=== PATIENT | male | born 1955 | race Caucasian/White ===

== ENCOUNTER 2017-07-27 21:40 | Emergency (ER) | payer BC ==
[2017-07-27] MEDS ORDERED: BABY ASPIRIN 81 MG CHEW PO ONE (21:53)
[2017-07-27] MEDS ORDERED: NITRO-BID 2% UD PACKETS TOP ONE (21:57)
--- NOTE | 2017-07-27 22:01 | ERPHSYRPT ---
- History of Present Illness Time Seen by Provider: 07/27/17 21:49 Historian: patient Exam Limitations: no limitations Physician History: Pt has been c/o productive cough, cold symptoms for one week, coughing up yellow phlegm, developed midsternal chest pain tonight at 20:00 PM, not radiating, with SOB< but no diaphoresis, vomiting or severe distress. He is a smoker, with Hx of HTN, COPD, and cardiac stents, arteficial heart valve. Timing/Duration: hour(s) (2), constant Activities at Onset: rest Quality: sharpness Location: substernal Chest Pain Radiation: no radiation Severity of Pain-Max: severe Severity of Pain-Current: severe Modifying Factors: Improves With: nothing Associated Symptoms: shortness of breath, cough, hurts to breathe Prior Chest Pain/Cardiac Workup: heart attack Nitro Today/Relief: no nitro taken today Aspirin Treatment Today: no aspirin today Allergies/Adverse Reactions: No Known Drug Allergies Allergy (Unverified 07/27/17 23:16) Home Medications: Carvedilol 3.125 mg [Coreg 3.125 MG] 3.125 mg PO BID 07/27/17 [History] Ticagrelor [Brilinta] 90 mg PO DAILY 07/27/17 [History] - Review of Systems Constitutional: No Symptoms Respiratory: Cough, Dyspnea Cardiac: Chest Pain, No Edema All Other Systems: Reviewed and Negative - Nursing Vital Signs Nursing Vital Signs: Initial Vital Signs Temperature 98.2 F 07/27/17 21:41 Pulse Rate 81 07/27/17 21:41 Respiratory Rate 18 07/27/17 21:41 Blood Pressure 112/67 07/27/17 21:41 O2 Sat by Pulse Oximetry 95 07/27/17 21:41 Pain Scale Pain Intensity 3 - Physical Exam General Appearance: no apparent distress Eye Exam: eyes nml inspection Ears, Nose, Throat Exam: normal ENT inspection Neck Exam: normal inspection, non-tender, supple, No JVD Respiratory Exam: normal breath sounds, lungs clear, airway intact, No chest tenderness, No respiratory distress Cardiovascular Exam: regular rate/rhythm, normal heart sounds, normal peripheral pulses, No murmur Gastrointestinal/Abdomen Exam: soft, normal bowel sounds, No tenderness Back Exam: normal inspection, No CVA tenderness Extremity Exam: normal inspection, No calf tenderness Neurologic Exam: alert, oriented x 3 Skin Exam: normal color, warm, dry, No rash Lymphatic Exam: No adenopathy SpO2 Interpretation: normal Oxygen Delivery: Room Air - Course Nursing assessment & vital signs reviewed: Yes EKG Interpreted by Me: RATE, NORMAL AXIS, NORMAL INTERVALS, Non-specific ST Changes - Radiology Exams Chest X-ray Interpretation: Interpreted by me, Negative Ordered Tests: Active Orders 24 hr Category Date Time Status Bedrest with BRP/BSC ROUTINE Activity 07/27/17 23:52 Active Admission/Status Order ROUTINE Care 07/27/17 23:52 Ordered Foundry Worker General STAT Care 07/27/17 21:54 Active Code Status Order ROUTINE Care 07/27/17 23:52 Ordered EKG-ER Only STAT Care 07/27/17 21:53 Active IV Care Q6H Care 07/27/17 23:52 Ordered IV Insertion STAT Care 07/27/17 21:53 Active Implement Chest Pain Pathway ROUTINE Care 07/27/17 23:52 Ordered Oxygen-ED Only NASAL CANNULA 2 lpm Care 07/27/17 21:53 Active Steve Sunshine Apply ROUTINE Care 07/27/17 23:52 Ordered Telemetry ROUTINE Care 07/27/17 23:52 Ordered Weight,Daily 0600 Care 07/27/17 23:52 Ordered Cardiac Diet Diet 07/27/17 Breakfast Ordered CHEST 1 VIEW (PORTABLE) Stat Exams 07/27/17 21:54 Taken CBC W DIFF Stat Lab 07/27/17 22:05 Completed CK-Creatinine Phosphokinase Stat Lab 07/27/17 22:05 Completed CMP Stat Lab 07/27/17 22:05 Completed D-DIMER QUANTITATION Stat Lab 07/27/17 22:05 Completed ETHYL ALCOHOL Stat Lab 07/27/17 22:05 Completed LIPASE Stat Lab 07/27/17 22:05 Completed LIPID PROFILE AM.LAB Lab 07/28/17 04:00 Ordered MAGNESIUM Stat Lab 07/27/17 22:05 Completed NT PRO BNP Stat Lab 07/27/17 22:05 Completed PROTIME WITH INR Stat Lab 07/27/17 22:05 Completed TROPONIN Q3H Lab 07/27/17 22:05 Completed TROPONIN Q3H Lab 07/28/17 01:00 Ordered TROPONIN Q3H Lab 07/28/17 04:00 Ordered TROPONIN Q3H Lab 07/28/17 07:00 Ordered TROPONIN Q3H Lab 07/28/17 10:00 Ordered EKG Q8HX2,QAMX3,PRN RT 07/27/17 23:52 Ordered Pulse Oximetry Q4H RT 07/27/17 23:52 Ordered Respiratory Nebulizer STAT RT 07/27/17 22:12 Active Transfer Order Routine Transfer 07/27/17 Ordered Medication Summary Discontinued Medications Generic Name Dose Route Start Last Admin Trade Name Freq PRN Reason Stop Dose Admin Albuterol/Ipratropium 3 ml 07/27/17 22:11 07/27/17 22:36 Duoneb 0.5-3 Mg/3 Ml Neb IH 07/27/17 22:12 3 ml STAT ONE Administration Albuterol/Ipratropium Confirm 07/27/17 22:35 Duoneb 0.5-3 Mg/3 Ml Neb Administered 07/27/17 22:36 Dose 3 ml IH .STK-MED ONE Aspirin 324 mg 07/27/17 21:53 07/27/17 22:01 Baby Aspirin 81 Mg Chew PO 07/27/17 21:54 324 mg STAT ONE Administration Nitroglycerin 1 gm 07/27/17 21:57 07/27/17 22:11 Nitro-Bid 2% Ud Packets TOP 07/27/17 21:58 1 gm STAT ONE Administration Nitroglycerin Confirm 07/27/17 22:11 Nitro-Bid 2% Ud Packets Administered 07/27/17 22:12 Dose 1 gm .ROUTE .STK-MED ONE Lab/Rad Data: Laboratory Result Diagrams 07/27/17 22:05 07/27/17 22:05 Laboratory Results 07/27/17 07/27/17 07/27/17 Range/Units 22:05 22:05 22:05 WBC (4.0-10.5) K/mm3 RBC (4.1-5.6) M/mm3 Hgb (12.5-18.0) gm/dl Hct (42-50) % MCV (78-100) fl MCH (26-32) pg MCHC (32-36) g/dl RDW (11.5-14.0) % Plt Count (150-450) K/mm3 MPV (6-9.5) fl Gran % (36.0-66.0) % Lymphocytes % (24.0-44.0) % Monocytes % (0.0-12.0) % Eosinophils % (0.00-5.0) % Basophils % (0.0-0.4) % Basophils # (0-0.4) INR 1.07 (0.8-3.0) D-Dimer 298.54 (0-500) ng/mL Sodium 138 (136-145) mEq/L Potassium 3.9 (3.5-5.1) mEq/L Chloride 103 (98-107) mEq/L Carbon Dioxide 26.6 (21-32) mEq/L Anion Gap 12.7 (5-15) MEQ/L BUN 12 (9-20) mg/dL Creatinine 1.28 (0.55-1.30) mg/dl Estimated GFR > 60 ML/MIN Glucose 84 (70-110) MG/DL Calcium 9.1 (8.5-10.1) mg/dL Magnesium 2.0 (1.8-2.4) mg/dL Total Bilirubin 0.50 (0.2-1.0) mg/dL AST 25 (15-37) U/L ALT 22 (12-78) U/L Alkaline Phosphatase 108 (46-116) U/L Creatine Kinase 94 (39-308) U/L Troponin I < 0.017 (0.000-0.056) ng/ml NT-Pro-B Natriuret Pep 80 (0-125) pg/ml Serum Total Protein 7.7 (6.4-8.2) gm/dL Albumin 3.5 (3.4-5.0) g/dL Lipase 82 (73-393) U/L Ethyl Alcohol < 0.010 (0.00-0.01) % 07/27/17 Range/Units 22:05 WBC 9.4 (4.0-10.5) K/mm3 RBC 4.55 (4.1-5.6) M/mm3 Hgb 14.8 (12.5-18.0) gm/dl Hct 43.3 (42-50) % MCV 95.2 (78-100) fl MCH 32.5 H (26-32) pg MCHC 34.2 (32-36) g/dl RDW 13.9 (11.5-14.0) % Plt Count 373 (150-450) K/mm3 MPV 8.9 (6-9.5) fl Gran % 82.9 H (36.0-66.0) % Lymphocytes % 11.3 L (24.0-44.0) % Monocytes % 3.4 (0.0-12.0) % Eosinophils % 2.0 (0.00-5.0) % Basophils % 0.4 (0.0-0.4) % Basophils # 0.04 (0-0.4) INR (0.8-3.0) D-Dimer (0-500) ng/mL Sodium (136-145) mEq/L Potassium (3.5-5.1) mEq/L Chloride (98-107) mEq/L Carbon Dioxide (21-32) mEq/L Anion Gap (5-15) MEQ/L BUN (9-20) mg/dL Creatinine (0.55-1.30) mg/dl Estimated GFR ML/MIN Glucose (70-110) MG/DL Calcium (8.5-10.1) mg/dL Magnesium (1.8-2.4) mg/dL Total Bilirubin (0.2-1.0) mg/dL AST (15-37) U/L ALT (12-78) U/L Alkaline Phosphatase (46-116) U/L Creatine Kinase (39-308) U/L Troponin I (0.000-0.056) ng/ml NT-Pro-B Natriuret Pep (0-125) pg/ml Serum Total Protein (6.4-8.2) gm/dL Albumin (3.4-5.0) g/dL Lipase (73-393) U/L Ethyl Alcohol (0.00-0.01) % - Progress Progress: improved Air Movement: fair Progress Note: 07/27/17 23:55 Pt states, he feels better after ASA and NTG nawaf solorzano, discussed his findings, I suggested to be admitted for Observation, I called Dr Rankin, discussed the results and patient's current condition, he agreed to admit him for observation. Pt finally decided to leave against medical advice, after discussed the dangers of his decision, he understood, he is alert and oriented x4, mentally fully competent. Discussed with : Chucho Will see patient in: hospital (observation) - Departure Time of Disposition: 23:58 Departure Disposition: AMA Clinical Impression: Chest pain Qualifiers: Chest pain type: chest pain on breathing Qualified Code(s): R07.1 - Chest pain on breathing; R07.81 - Pleurodynia Condition: Stable Critical Care Time: No Referrals: RANJITH BACA MD [Primary Care Provider] - Additional Instructions: Rest x 2-3 days, return if severe pain, shortness of breath, fever> 102 F!
[2017-07-27] MEDS ORDERED: DUONEB 0.5-3 MG/3 ml Neb IH ONE ×2 (22:11→22:35)
[2017-07-27] MEDS ORDERED: NITRO-BID 2% UD PACKETS ONE (22:11)
[2017-07-27 22:17] LABS: BASOPHIL % 0.4 % (0.0-0.4); Basophil (Absolute #) 0.04 (0-0.4); Eosinophil (Absolute #) 0.19 (0-0.5); Granulocytes % 82.9 % (36.0-66.0); Hematocrit 43.3 % (42-50); Hemoglobin 14.8 gm/dl (12.5-18.0); Lymphocyte (Absolute #) 1.06 (1.0-4.6); Lymphocytes % 11.3 % (24.0-44.0); Mean Cell Volume 95.2 fl (78-100); Mean Corpuscular Hemoglobin 32.5 pg (26-32); Mean Corpuscular Hgb Concent. 34.2 g/dl (32-36); Mean Platelet Volume 8.9 fl (6-9.5); Monocyte (Absolute #) 0.32 (0.0-1.3); Monocytes % 3.4 % (0.0-12.0); Platelet Count 373 K/mm3 (150-450); Red Blood Count 4.55 M/mm3 (4.1-5.6); Red Cell Distribution Width 13.9 % (11.5-14.0); White Blood Count 9.4 K/mm3 (4.0-10.5)
[2017-07-27 22:32] LABS: INR 1.07 (0.8-3.0)
[2017-07-27 22:33] LABS: D-DIMER QUANTITATION 298.54 ng/mL (0-500)
[2017-07-27 22:46] LABS: ALBUMIN 3.5 g/dL (3.4-5.0); ALKALINE PHOSPHATASE 108 U/L (46-116); ANION GAP 12.7 MEQ/L (5-15); BLOOD UREA NITROGEN 12 mg/dL (9-20); CHLORIDE 103 mEq/L (98-107); CK-Creatinine Phosphokinase 94 U/L (39-308); Calcium 9.1 mg/dL (8.5-10.1); Carbon Dioxide 26.6 mEq/L (21-32); Creatinine 1 1.28 mg/dl (0.55-1.30); EST GLOMERULAR FILTRATION RATE > 60 ML/MIN; ETHYL ALCOHOL < 0.010 % (0.00-0.01); Glucose 84 MG/DL (70-110); LIPASE 82 U/L (73-393); NT PRO BNP 80 pg/ml (0-125); Potassium 3.9 mEq/L (3.5-5.1); SGOT/AST 25 U/L (15-37); SGPT/ALT 22 U/L (12-78); SODIUM 138 mEq/L (136-145); Total Protein 7.7 gm/dL (6.4-8.2)
[2017-07-27 23:15] VITALS: BP 105/61; PULSE 80; O2SAT 95
[2017-07-27] MEDS ORDERED: Zofran 4 MG/2 ML VIAL IV PRN (23:52)
[2017-07-27] MEDS ORDERED: MILK OF MAGNESIA 30 ML PO PRN (23:52)
[2017-07-27] MEDS ORDERED: Senokot-S Tablet PO PRN (23:52)
[2017-07-27] MEDS ORDERED: MAALOX ES 30 ML UNIT DOSE PO PRN (23:52)
[2017-07-27] MEDS ORDERED: TYLENOL 325 MG PO PRN (23:52)
[2017-07-28] MEDS ORDERED: BABY ASPIRIN 81 MG CHEW ONE (04:45)
--- NOTE | 2017-07-28 08:47 | XRAY ---
Indication: Chest pain and cough. Comparison: July 15, 2006. Portable chest remains hyperinflated and clear with a few incidental calcified granulomas. Heart and mediastinal structures within normal limits. Bony thorax intact. Impression: Stable nonacute hyperinflated chest.
[2017-07-28] MEDS ORDERED: Ecotrin 325 MG PO SCH (10:00)
== END 2017-07-28 00:03 | disposition left against medical advice (07) ==
LOC: ED 21:40
DX: R07.81 Pleurodynia (principal); R07.89 Other chest pain; R05 Cough; I10 Essential (primary) hypertension; J44.9 Chronic obstructive pulmonary disease, unspecified; Z98.61 Coronary angioplasty status; Z95.2 Presence of prosthetic heart valve; Z79.899 Other long term (current) drug therapy
CPT/HCPCS: 36000; 36415; 71045; 80053; 82550; 83690; 83735; 83880; 84484; 85025; 85379; 85610; 93005; 93041; 94640; 99284; G0481; A9270-GY